=== PATIENT | female | born 1970 | race Hispanic/Latino ===

== ENCOUNTER 2017-06-04 01:53 | Inpatient (IN) | payer OTHER ==
[2017-06-04 03:26] LABS: BASO # 0.1 K/uL (0.0-0.2); BASO % 1.1 % (0.0-2.0); EOS # 0.3 K/uL (0.0-0.7); EOS % 2.9 % (0.0-4.0); HEMATOCRIT 35.5 % (34.0-47.0); LYMPH # 1.4 K/uL (1.0-4.3); LYMPH % 12.4 % (20.0-40.0); MEAN CELL VOLUME 84.7 fL (81.0-99.0); MEAN CORPUSCULAR HEMOGLOBIN 27.6 pg (27.0-31.0); MEAN CORPUSCULAR HGB CONC 32.6 g/dL (33.0-37.0); MEAN PLATELET VOLUME 8.6 fL (7.2-11.7); MONO # 0.9 K/uL (0.0-0.8); MONO % 7.5 % (0.0-10.0); RED CELL DISTRIBUTION WIDTH 14.8 % (11.5-14.5); WHITE BLOOD COUNT 11.6 K/uL (4.8-10.8)
[2017-06-04 03:37] LABS: ALB/GLOB RATIO 1.2 (1.0-2.1); ALKALINE PHOSPHATASE 72 U/L (38-126); ALT/SGPT 35 U/L (9-52); AST/SGOT 20 U/L (14-36); BILIRUBIN,TOTAL 0.5 mg/dL (0.2-1.3); BLOOD UREA NITROGEN 12 mg/dL (7-17); CALCIUM 9.1 mg/dl (8.6-10.4); CARBON DIOXIDE 23 mmol/L (22-30); CHLORIDE 103 mmol/L (98-107); GFR AFRICAN-AMERICAN > 60; GLUCOSE,RANDOM 104 mg/dL (65-105); POTASSIUM 3.7 mmol/L (3.6-5.2); SODIUM 141 mmol/L (132-148); TOTAL PROTEIN 6.9 g/dL (6.3-8.3)
[2017-06-04] MEDS ORDERED: DiphenhydrAMINE 50 mg/ml Inj IVP STA (04:20)
--- NOTE | 2017-06-04 04:23 | C.PDOC ---
History Of Present Illness 47 y/o female presents to the ED for evaluation of increased pain and swelling to right cheek which began a couple days ago. Patient notes she has a painful tooth in her right upper mouth region. She denies fever, chills. pt also with intermittent hives to arms for a few days. Time Seen by Provider: 06/04/17 02:35 Chief Complaint (Nursing): Allergic Reaction History Per: Patient History/Exam Limitations: no limitations Onset/Duration Of Symptoms: Days Current Symptoms Are (Timing): Still Present Possible Cause: Unknown Additional History Per: Patient Past Medical History Reviewed: Historical Data, Nursing Documentation, Vital Signs Vital Signs: Last Vital Signs Temp 98.5 F 06/04/17 02:05 Pulse 87 06/04/17 02:05 Resp 20 06/04/17 02:05 BP 135/89 06/04/17 02:05 Pulse Ox 97 06/04/17 06:42 - Medical History PMH: No Chronic Diseases Surgical History: No Surg Hx Family History: States: Unknown Family Hx - Social History Hx Alcohol Use: No Hx Substance Use: No Review Of Systems Constitutional: Negative for: Fever, Chills ENT: Positive for: Mouth Pain (pain and swelling to right cheek. painful tooth in right upper mouth) Physical Exam - Physical Exam Appears: Non-toxic, No Acute Distress, Other (obese) Skin: Normal Color, Warm, Dry, Other (swelling and erythema with tenderness to right cheek) Head: Atraumatic, Normacephalic Eye(s): bilateral: Normal Inspection Oral Mucosa: Moist Teeth: Tender To Palpation (broken tooth in right mandible ), Other (+broken tooth due to caries in right mandible ) Neck: Supple Chest: Symmetrical, No Deformity, No Tenderness Cardiovascular: Rhythm Regular, No Murmur Respiratory: Normal Breath Sounds, No Rales, No Rhonchi, No Wheezing Neurological/Psych: Normal Speech, Normal Cognition ED Course And Treatment - Laboratory Results Result Diagrams: 06/04/17 03:23 06/04/17 03:23 O2 Sat by Pulse Oximetry: 97 (on RA) Pulse Ox Interpretation: Normal - CT Scan/US CT Orbits Other Rad Studies (CT/US): Radiology Report Reviewed CT/US Interpretation: EXAM: CT Orbits Without Intravenous Contrast. EXAM DATE/ TIME: 06/04/2017 3:01 AM. CLINICAL HISTORY: 47 years old, female; Pain; Face pain; Additional info: Right facial swelling. TECHNIQUE: Axial computed tomography images of the orbits without intravenous contrast. All CT scans at this. facility use one or more dose reduction techniques, viz.: automated exposure control; ma/kV. adjustment per patient size (including targeted exams where dose is matched to indication; i.e. head);. or iterative reconstruction technique. Coronal and sagittal reformatted images were created and reviewed. COMPARISON: No relevant prior studies available. FINDINGS: LIMITATIONS: Streak artifact from metallic dental hardware. ORBITS: Intraorbital soft tissues appear grossly intact. No evidence of significant orbital. emphysema. SINUSES: Mild mucosal thickening in the right maxillary sinus. No evidence of sinus fluid levels. BONES/JOINTS: Smooth bony protuberance is seen arising from the right frontal skull laterally,. measuring 0.8 x 2 cm, felt to represent a normal variant. No acute fractures are seen. SOFT TISSUES: Swelling and subcutaneous fat infiltration involving the right facial soft tissues,. centered in the pre-maxillary and the perimandibular soft tissues. Findings are suspicious for cellulitis There is no definite focal abnormal walled-off fluid collections seen to suggest a drainable abscess. There is no evidence of soft tissue gas. DENTAL: Findings suspicious for periodontal abscesses involving multiple upper, teeth bilaterally,. including a right molar tooth, image 53/series 601, and a right premolar tooth, image 64 of series 601. IMPRESSION: - Findings in the right facial soft tissues which are suspicious for cellulitis. There is no definite. focal, drainable soft tissue abscess visualized. - Findings suspicious for periodontal abscesses involving multiple upper teeth. - See above for remaining findings. Medical Decision Making Medical Decision Making: Impression: 47 y/o female with likely dental abscess Plan: * labs * CT Orbits/facial * Benadryl IV * Clindamycin PO * Motrin PO * reassess and disposition Progress: labs and CT Orbits/Facial ordered and reviewed. Patient received Benadryl IV, Clindamycin PO, and Motrin PO. Pt developed hive on right arm near iv insertions site. will give benadryl. 610 am pt with right facial cellulitis on ct scan; plan to admit for iv antibiotics. Dr David paged. [address] David, will admit to his service Disposition Discussed With .: Roseann David Doctor Will See Patient In The: Hospital - Disposition Disposition Time: 06:41 Condition: STABLE - Clinical Impression Clinical Impression: Cellulitis of face - PA / POST ANESTHESIA NURSE / Resident Statement MD/DO has reviewed & agrees with the documentation as recorded. - Scribe Statement The provider has reviewed the documentation as recorded by the Scribe (Chelsea Medina) All medical record entries made by the Scribe were at my direction and personally dictated by me. I have reviewed the chart and agree that the record accurately reflects my personal performance of the history, physical exam, medical decision making, and the department course for this patient. I have also personally directed, reviewed, and agree with the discharge instructions and disposition. Decision To Admit - Pt Status Changed To: Hospital Disposition Of: Observation - . Bed Request Type: Regular Patient Diagnosis: Cellulitis of face
[2017-06-04] MEDS ORDERED: Clindamycin 600mg/50ml NS 600 MG/50 ML BAG IVPB ONE ×2 (04:26→05:00)
[2017-06-04] MEDS ORDERED: DiphenhydrAMINE 50 mg/ml Inj ONE (04:26)
[2017-06-04] MEDS ORDERED: Clindamycin 600mg/50ml D5W 600 MG/50 ML VIAL IVPB SCH (04:30)
[2017-06-04] MEDS ORDERED: Clindamycin 600mg/50ml D5W 600 MG/50 ML VIAL IVPB ONE (04:44)
--- NOTE | 2017-06-04 06:04 | CT ---
EXAM: CT Orbits Without Intravenous Contrast EXAM DATE/TIME: 06/04/2017 3:01 AM CLINICAL HISTORY: 47 years old, female; Pain; Face pain; Additional info: Right facial swelling TECHNIQUE: Axial computed tomography images of the orbits without intravenous contrast. All CT scans at this facility use one or more dose reduction techniques, viz.: automated exposure control; ma/kV adjustment per patient size (including targeted exams where dose is matched to indication; i.e. head); or iterative reconstruction technique. Coronal and sagittal reformatted images were created and reviewed. COMPARISON: No relevant prior studies available. FINDINGS: LIMITATIONS: Streak artifact from metallic dental hardware. ORBITS: Intraorbital soft tissues appear grossly intact. No evidence of significant orbital emphysema. SINUSES: Mild mucosal thickening in the right maxillary sinus. No evidence of sinus fluid levels. BONES/JOINTS: Smooth bony protuberance is seen arising from the right frontal skull laterally, measuring 0.8 x 2 cm, felt to represent a normal variant. No acute fractures are seen. SOFT TISSUES: Swelling and subcutaneous fat infiltration involving the right facial soft tissues, centered in the pre-maxillary and the perimandibular soft tissues. Findings are suspicious for cellulitis. There is no definite focal abnormal walled-off fluid collections seen to suggest a drainable abscess. There is no evidence of soft tissue gas. DENTAL: Findings suspicious for periodontal abscesses involving multiple upper, teeth bilaterally, including a right molar tooth, image 53/series 601, and a right premolar tooth, image 64 of series 601. IMPRESSION: - Findings in the right facial soft tissues which are suspicious for cellulitis. There is no definite focal, drainable soft tissue abscess visualized. - Findings suspicious for periodontal abscesses involving multiple upper teeth. - See above for remaining findings.
[2017-06-04 10:25] VITALS: RESP 20
--- NOTE | 2017-06-04 11:21 | CP.PCM.PN ---
Subjective - Date & Time of Evaluation Date of Evaluation: 06/04/17 Time of Evaluation: 10:30 - Subjective Subjective: Patient is a 47 year old female who denies past medical history who presents to the hospital with complaint of right-sided facial pain and swelling sine Friday evening. Patient states she was taking Aleve for the pain at home with partial relief. Patient states that around 12:05AM on 06/04 she woke up with increased pain and went to take another dose of Aleve. Patient states she noticed increased facial swelling and was urged to go to the hospital by her son. Patient states she has had tooth pain on right maxilla for several days. Patient admits she has not seen a dentist in a long time. Patient states she is not sure, but that it is possible there was purulent drainage in the mouth from the area of her tooth pain. Patient denies fevers and chills. Objective - Vital Signs/Intake and Output Vital Signs (last 24 hours): Temp Pulse Resp BP Pulse Ox 98.3 F 74 20 120/80 97 06/04/17 08:55 06/04/17 08:55 06/04/17 08:55 06/04/17 08:55 06/04/17 08:55 - Medications Medications: Current Medications Clindamycin Phosphate (Cleocin In Normal Saline Addvantage) 600 mg in 50 mls @ 100 mls/hr IVPB Q8H LORY Oxycodone/Acetaminophen (Percocet 5/325 Mg Tab) 1 tab PO Q4 PRN PRN Reason: Pain, moderate (4-7) Stop: 06/07/17 06:40 - Constitutional Appears: Non-toxic, No Acute Distress - Eye Exam Eye Exam: EOMI Additional comments: mild infraorbital swelling, mild erythema nontender on palpation - ENT Exam ENT Exam: Mucous Membranes Moist Additional comments: multiple carious teeth several broken teeth noted on maxilla last molar on maxilla tender with tapping, adjacent molar broken no draining sinus tracts visualized, no purulent drainage visualized - Respiratory Exam Respiratory Exam: Clear to Ausculation Bilateral - Cardiovascular Exam Cardiovascular Exam: +S1, +S2 - GI/Abdominal Exam GI & Abdominal Exam: Soft, Normal Bowel Sounds. absent: Tenderness - Extremities Exam Extremities Exam: Normal Inspection. absent: Pedal Edema - Neurological Exam Neurological Exam: Alert, Awake - Psychiatric Exam Psychiatric exam: Normal Affect - Skin Skin Exam: Dry, Warm Assessment and Plan - Assessment and Plan (Free Text) Assessment: Right facial cellulitis CT Orbit: right facial cellulitis, no facial abscess. multiple upper teeth periodontal abscesses likely secondary to maxillary periodontal abscesses continue clindamycin 600mg IV q8 transition to PO clindamycin when patient ready for discharge Maxillary periodontal abscesses CT Orbit: right facial cellulitis, no facial abscess. multiple upper teeth periodontal abscesses continue IV clindamycin as above patient with multiple broken and missing teeth patient will need dentist follow up for extractions of broken teeth Prophylactic measure SCDs All medical management as per Dr. David
[2017-06-04] MEDS: Clindamycin 600mg/50ml NS 600 MG/50 ML BAG IVPB SCH ×2 (12:49→21:17)
[2017-06-04] MEDS: Oxycodone/Acetaminophen 5/325 mg Tab PO PRN ×2 (12:53→21:28)
--- NOTE | 2017-06-04 17:02 | CP.PCM.CON ---
History of Present Illness - History of Present Illness History of Present Illness: PT REFERRED FOR ID EVAL OF PERIODONTAL ABSCESS WITH FACIAL CELLULITIS 47 year old female who denies past medical history who presents to the hospital with complaint of right-sided facial pain and swelling sine Friday evening. Patient states she was taking Aleve for the pain at home with partial relief. Patient states that around 12:05AM on 06/04 she woke up with increased pain and went to take another dose of Aleve. Patient states she noticed increased facial swelling and was urged to go to the hospital by her son. Patient states she has had tooth pain on right maxilla for several days. Patient admits she has not seen a dentist in a long time. Patient states she is not sure, but that it is possible there was purulent drainage in the mouth from the area of her tooth pain. Patient denies fevers and chills. Review of Systems - Constitutional Constitutional: As Per HPI - EENT Eyes: absent: As Per HPI, Blind Spots, Blurred Vision, Change in Vision, Decreased Night Vision, Diplopia, Discharge, Dry Eye, Exophthalmos, Floaters, Irritation, Itchy Eyes, Loss of Peripheral Vision, Pain, Photophobia, Requires Corrective Lenses, Sees Flashes, Spots in Vision, Tunnel Vision, Other Visual Disturbances, Loss of Vision, Other Ears: absent: As Per HPI, Decreased Hearing, Ear Discharge, Ear Pain, Tinnitus, Abnormal Hearing, Disequilibrium, Dizziness, Other Nose/Mouth/Throat: As Per HPI, Sinus Pain, Facial Pain. absent: Throat Swelling , Tongue Swelling - Breasts Breasts: absent: As Per HPI, Change in Shape, Mass, Pain, Nipple Discharge, Nipple Inversion, Skin Changes, Swelling, Other - Cardiovascular Cardiovascular: absent: As Per HPI, Acrocyanosis, Chest Pain, Chest Pain at Rest , Chest Pain with Activity, Claudication, Diaphoresis, Dyspnea, Dyspnea on Exertion, Edema, Irregular Heart Rhythm, Pain Radiating to Arm/Neck/Jaw, Leg Edema, Leg Ulcers, Lightheadedness, Orthopnea, Palpitations, Paroxysmal Nocturnal Dyspnea, Pedal Edema, Radiating Pain, Rapid Heart Rate, Slow Heart Rate, Syncope, Other - Respiratory Respiratory: absent: As Per HPI, Cough, Dyspnea, Hemoptysis, Dyspnea on Exertion , Wheezing, Snoring, Stridor, Pain on Inspiration, Chest Congestion, Excessive Mucous Production, Change in Mucous Color, Pain with Coughing, Other - Gastrointestinal Gastrointestinal: absent: As Per HPI, Abdominal Pain, Belching, Bloating, Change in Bowel Habits, Change in Stool Character, Coffee Ground Emesis, Constipation, Cramping, Diarrhea, Dyspepsia, Dysphagia, Early Satiety, Excessive Flatus, Fecal Incontinence, Heartburn, Hematemesis, Hematochezia, Loose Stools, Melena, Nausea, Odynophagia, Temesmus, Vomiting, Other - Genitourinary Genitourinary: absent: As Per HPI, Change in Urinary Stream, Difficulty Urinating, Dysuria, Flank Pain, Hematuria, Pyuria, Nocturia, Urinary Incontinence, Urinary Frequency, Urinary Hesitance, Urinary Urgency, Voiding Freq/Small Amts, Freq UTI, Hx Renal/Bladder Calculi, Hx /Renal Surgery, Bladder Distension, Other - Reproductive: Female Reproductive:Female: absent: As Per HPI, Amenorrhea, Amenorrhea/ Control, Currently Menstual, Cycle <21 Days, Cycle >35 Days, Cycle Variable, Menses 1-7 Days, Menses >/= 8 Days, Menses Variable, Cycle > 4 Weeks Between, No Menses for 6 Months, Heavy Menses, Light Menses, Normal Menses, Spotting Between Cycles , S/P Hysterectomy, Menopausal, Post Menopausal, Premenarche, Abnormal Vaginal Bleeding, Dysmenorrhea, Dyspareunia, Genital Lesions, Genital Pruritis, Pelvic Pain, Prolapse Symptoms, Sexual Dysfunction, Vaginal Discharge, Vaginal Dryness , Vaginal Odor, Vaginal Pruritis, Other - Menstruation Menstruation: absent: As Per HPI, Amenorrhea, Amenorrhea/ Control, Currently Menstual, Cycle <21 Days, Cycle >35 Days, Cycle Variable, Menses 1-7 Days, Menses >/= 8 Days, Menses Variable, Cycle > 4 Weeks Between, No Menses for 6 Months, Heavy Menses, Light Menses, Normal Menses, Spotting Between Cycles , S/P Hysterectomy, Menopausal, Post Menopausal, Premenarche, Abnormal Vaginal Bleeding, Dysmenorrhea, Other - Musculoskeletal Musculoskeletal: absent: As Per HPI, Abnormal Gait, Arthralgias, Atrophy, Back Pain, Deformity, Joint Swelling, Limited Range of Motion, Loss of Height, Muscle Cramps, Muscle Weakness, Myalgias, Neck Pain, Numbness, Radiating Pain into Limb, Stiffness, Tingling, Other - Integumentary Integumentary: As Per HPI - Neurological Neurological: absent: As Per HPI, Abnormal Gait, Abnormal Hearing, Abnormal Movements, Abnormal Speech, Behavioral Changes, Burning Sensations, Confusion, Convulsions, Disequilibrium, Dizziness, Numbness, Focal Weakness, Frequent Falls , Headaches, Lack of Coordination, Loss of Vision, Memory Loss, Paresthesias, Radicular Pain, Restless Legs, Sensory Deficit, Syncope, Tingling, Tremor, Vertigo, Weakness, Other Visual Disturbances, Other - Psychiatric Psychiatric: absent: As Per HPI, Abnormal Sleep Pattern, Anhedonia, Anxiety, Auditory Hallucinations, Behavioral Changes, Change in Appetite, Change in Libido, Confusion, Depression, Difficulty Concentrating, Hallucinations, Homicidal Ideation, Hopelessness, Irritability, Memory Loss, Mood Swings, Panic Attacks, Paranoia, Suicidal Ideation, Visual Hallucinations, Tactile Hallucinations, Other - Endocrine Endocrine: absent: As Per HPI, Change in Body Appearance, Change in Libido, Cold Intolorance, Deepening of Voice, Excessive Sweating, Fatigue, Flushing, Heat Intolorance, Increase in Ring/Shoe/Hat Size, Palpitations, Polydipsia, Polyphagia, Polyuria, Other - Hematologic/Lymphatic Hematologic: absent: As Per HPI, Easy Bleeding, Easy Bruising, Lymphadenopathy, Other Past Patient History - Past Medical History & Family History Past Medical History?: Yes - Past Social History Smoking Status: Former Smoker - CARDIAC Hx Cardiac Disorders: No - PULMONARY Hx Respiratory Disorders: No - NEUROLOGICAL Hx Neurological Disorder: No - HEENT Hx HEENT Problems: No - RENAL Hx Chronic Kidney Disease: No - ENDOCRINE/METABOLIC Hx Endocrine Disorders: No - HEMATOLOGICAL/ONCOLOGICAL Hx Blood Disorders: No - INTEGUMENTARY Hx Dermatological Problems: No - MUSCULOSKELETAL/RHEUMATOLOGICAL Hx Musculoskeletal Disorders: No Hx Falls: No - GASTROINTESTINAL Hx Gastrointestinal Disorders: No - GENITOURINARY/GYNECOLOGICAL Hx Genitourinary Disorders: No - PSYCHIATRIC Hx Psychophysiologic Disorder: No Hx Substance Use: No - SURGICAL HISTORY Hx Tubal Ligation: Yes - ANESTHESIA Hx Anesthesia: No Hx Anesthesia Reactions: No Hx Malignant Hyperthermia: No Has any member of the family had a problem w/ anesthesia?: No Meds Allergies/Adverse Reactions: Allergies Allergy/AdvReac Type Severity Reaction Status Date / Time No Known Allergies Allergy Verified 06/04/17 02:10 - Medications Medications: Current Medications Clindamycin Phosphate (Cleocin In Normal Saline Addvantage) 600 mg in 50 mls @ 100 mls/hr IVPB Q8H LORY Last Admin: 06/04/17 12:49 Dose: 100 mls/hr Oxycodone/Acetaminophen (Percocet 5/325 Mg Tab) 1 tab PO Q4 PRN PRN Reason: Pain, moderate (4-7) Stop: 06/07/17 06:40 Last Admin: 06/04/17 12:53 Dose: 1 tab Physical Exam - Constitutional Appears: Non-toxic, No Acute Distress - Head Exam Head Exam: ATRAUMATIC, NORMAL INSPECTION, NORMOCEPHALIC - Eye Exam Eye Exam: Periorbital swelling, Periorbital tenderness, PERRL. absent: Normal appearance, Scleral icterus Additional comments: SWELLING RIGHT FACE ? WEAKNESS RIGHT FACE - ENT Exam ENT Exam: Mucous Membranes Dry, Normal External Ear Exam, Normal Oropharynx - Neck Exam Neck exam: Negative for: Lymphadenopathy, Thyromegaly - Respiratory Exam Respiratory Exam: Decreased Breath Sounds, Clear to Auscultation Bilateral - Cardiovascular Exam Cardiovascular Exam: REGULAR RHYTHM - GI/Abdominal Exam GI & Abdominal Exam: Diminished Bowel Sounds, Soft. absent: Tenderness - Rectal Exam Rectal Exam: Deferred - Exam Exam: NORMAL INSPECTION - Extremities Exam Extremities exam: Positive for: pedal pulses present. Negative for: calf tenderness, pedal edema, tenderness - Back Exam Back exam: absent: CVA tenderness (L), CVA tenderness (R) - Neurological Exam Neurological exam: Alert, CN II-XII Intact, Oriented x3, Reflexes Normal - Psychiatric Exam Psychiatric exam: Normal Mood - Skin Skin Exam: Dry, Intact Results - Vital Signs Recent Vital Signs: Last Vital Signs Temp 98.0 F 06/04/17 16:13 Pulse 93 H 06/04/17 16:13 Resp 20 06/04/17 16:13 BP 112/66 06/04/17 16:13 Pulse Ox 96 06/04/17 16:13 - Labs Result Diagrams: 06/04/17 03:23 06/04/17 03:23 Assessment & Plan (1) Periodontal abscess Status: Acute (2) Periodontal disease Status: Acute (3) Cellulitis of face Status: Acute - Assessment and Plan (Free Text) Assessment: NEEDS URGENT DENTAL EVAL FOR REXTRACTIONS CONT IV ANTIBIOTICS CONSIDER OMFS EVAL BERNA
[2017-06-05] MEDS: Clindamycin 600mg/50ml NS 600 MG/50 ML BAG IVPB SCH ×2 (05:22→13:10)
[2017-06-05 08:09] VITALS: BP 126/96; PULSE 63; TEMP 98.1; O2SAT 96
[2017-06-05 08:24] LABS: BASO # 0.1 K/uL (0.0-0.2); BASO % 0.7 % (0.0-2.0); EOS # 0.3 K/uL (0.0-0.7); EOS % 3.3 % (0.0-4.0); HEMATOCRIT 37.5 % (34.0-47.0); LYMPH % 11.8 % (20.0-40.0); MEAN CELL VOLUME 85.1 fL (81.0-99.0); MEAN CORPUSCULAR HEMOGLOBIN 28.2 pg (27.0-31.0); MEAN CORPUSCULAR HGB CONC 33.1 g/dL (33.0-37.0); MEAN PLATELET VOLUME 8.8 fL (7.2-11.7); MONO # 0.7 K/uL (0.0-0.8); MONO % 8.3 % (0.0-10.0); RED CELL DISTRIBUTION WIDTH 15.1 % (11.5-14.5); WHITE BLOOD COUNT 8.7 K/uL (4.8-10.8)
[2017-06-05 08:35] LABS: CHLORIDE 104 mmol/L (98-107); POTASSIUM 4.2 mmol/L (3.6-5.2); SODIUM 143 mmol/L (132-148)
[2017-06-05 08:37] LABS: GFR AFRICAN-AMERICAN > 60
[2017-06-05 08:38] LABS: ALB/GLOB RATIO 1.2 (1.0-2.1); ALKALINE PHOSPHATASE 73 U/L (38-126); ALT/SGPT 52 U/L (9-52); AST/SGOT 36 U/L (14-36); BILIRUBIN,TOTAL 0.7 mg/dL (0.2-1.3); BLOOD UREA NITROGEN 11 mg/dL (7-17); CARBON DIOXIDE 27 mmol/L (22-30); GLUCOSE,RANDOM 124 mg/dL (65-105)
--- NOTE | 2017-06-05 15:24 | CP.PCM.PN ---
Subjective - Date & Time of Evaluation Date of Evaluation: 06/05/17 Time of Evaluation: 09:45 - Subjective Subjective: PGY2 medicine note for Dr. David: Patient seen and examined. Patient states swelling is greatly improved. Patient states she has a dentist she can see on discharge. Patient advised to follow up with dentist within the next few days as the swelling can worsen after completion of antibiotics if dental abscesses not treated. Objective - Vital Signs/Intake and Output Vital Signs (last 24 hours): Temp Pulse Resp BP Pulse Ox 98.1 F 63 20 126/96 H 96 06/05/17 08:09 06/05/17 08:09 06/05/17 08:09 06/05/17 08:09 06/05/17 08:09 Intake and Output: 06/05/17 06/05/17 06:59 18:59 Intake Total 700 Balance 700 - Medications Medications: Current Medications Clindamycin Phosphate (Cleocin In Normal Saline Addvantage) 600 mg in 50 mls @ 100 mls/hr IVPB Q8H LORY Last Admin: 06/05/17 13:10 Dose: 100 mls/hr Oxycodone/Acetaminophen (Percocet 5/325 Mg Tab) 1 tab PO Q4 PRN PRN Reason: Pain, moderate (4-7) Stop: 06/07/17 06:40 Last Admin: 06/04/17 21:28 Dose: 1 tab - Labs Labs: 06/05/17 08:17 06/05/17 08:17 - Constitutional Appears: No Acute Distress - Head Exam Head Exam: ATRAUMATIC, NORMOCEPHALIC - Eye Exam Eye Exam: EOMI Additional comments: mild infraorbital swelling, improved from prior examination - ENT Exam ENT Exam: Mucous Membranes Moist - Respiratory Exam Respiratory Exam: Clear to Ausculation Bilateral, NORMAL BREATHING PATTERN. absent: Respiratory Distress - Cardiovascular Exam Cardiovascular Exam: +S1, +S2 - GI/Abdominal Exam GI & Abdominal Exam: Soft, Normal Bowel Sounds. absent: Tenderness - Extremities Exam Extremities Exam: Normal Inspection. absent: Pedal Edema - Neurological Exam Neurological Exam: Alert, Awake - Psychiatric Exam Psychiatric exam: Normal Affect - Skin Skin Exam: Dry, Warm Assessment and Plan - Assessment and Plan (Free Text) Assessment: Right facial cellulitis CT Orbit: right facial cellulitis, no facial abscess. multiple upper teeth periodontal abscesses likely secondary to maxillary periodontal abscesses Patient to take clindamycin 300mg PO three times daily for 8 more days on discharge. Maxillary periodontal abscesses CT Orbit: right facial cellulitis, no facial abscess. multiple upper teeth periodontal abscesses patient with multiple broken and missing teeth Patient to take clindamycin 300mg PO three times daily for 8 more days on discharge. patient will need dentist follow up for extractions of broken teeth Prophylactic measure SCDs All medical management as per Dr. David Patient is stable for discharge home per Dr. David. Patient is to follow up with a dentist within the next 5-7 days. Patient is to follow up with Dr. David within the next week. Patient is to return to the ED if her symptoms worsen or reoccur. Patient to take clindamycin 300mg PO three times daily for 8 more days on discharge.
== END 2017-06-05 16:22 | disposition home or self-care (01) | DRG 185 ==
LOC: C.ER 01:53 → OBSVTOIN 06:40 → C.9E 06:40 → C.3T 07:43
PROVIDERS: ADMIT Internal Medicine Pulmonary Disease; ATTEND Internal Medicine Pulmonary Disease
DX: K04.7 Periapical abscess without sinus (principal); L03.211 Cellulitis of face; K05.219 Aggressive periodontitis, localized, unspecified severity; Z87.891 Personal history of nicotine dependence; Z98.51 Tubal ligation status